=== PATIENT | male | born 1945 | race Caucasian/White ===

== ENCOUNTER → 2017-12-06 | Outpatient (CLI) | payer MEDICARE, OTHER ==
[2017-12-06 13:32] LABS: ALT (GPT) 25 U/L (12-78); CHOLESTEROL 192 MG/DL (120-200); TRIGLYCERIDES 85 MG/DL (42-150)
[2017-12-06 13:34] LABS: ALBUMIN 3.8 GM/DL (3.4-5.0); AST (GOT) 21 U/L (15-37); BICARBONATE 24.8 MEQ/L (21.0-32.0); BLOOD UREA NITROGEN 22 MG/DL (7-18); CALCIUM 9.3 MG/DL (8.5-10.1); CHLORIDE 103 MEQ/L (98-107); CREATININE 1.08 MG/DL (0.60-1.30); GLOMERULAR FILTRATION RATE 67 ML/MIN (>89); GLUCOSE,FASTING 116 MG/DL (74-99); SODIUM (NA) 137 MEQ/L (136-145)
[2017-12-06 13:35] LABS: ALKALINE PHOSPHATASE 100 U/L (45-117); CHOLESTEROL/ HDL RATIO 4.35 RATIO; HDL CHOLESTEROL 44.1 MG/DL (40.0-60.0); LDL CHOLESTEROL 131 MG/DL (0-99); TOTAL BILIRUBIN ADULT 0.4 MG/DL (0.2-1.0); TOTAL PROTEIN 8.2 GM/DL (6.4-8.2)
[2017-12-08 11:54] LABS: RHEUMATOID FACTOR 10 IU/mL (<14)
[2017-12-08 17:51] LABS: ANA IFA PATTERN ND (()); ANA IFA TITER ND titer (()); ANA SER QL NEGATIVE (NEGATIVE); SCL-70 AB <1.0 NEG AI (<1.0 NEGATIVE); SM AB <1.0 NEG AI (<1.0 NEGATIVE); SM/RNP AB <1.0 NEG AI (<1.0 NEGATIVE)
[2017-12-08 23:53] LABS: DS DNA AB(CRITHIDIA) NEGATIVE (NEGATIVE); DS DNA AB(CRITHIDIA)TITER ND (<1:10)
== END ==
LOC: CLAB 12:38
PROVIDERS: ATTEND Family Medicine
DX: E78.2 Mixed hyperlipidemia (principal); M25.50 Pain in unspecified joint; Z12.5 Encounter for screening for malignant neoplasm of prostate
CPT/HCPCS: 36415; 80053; 80061; 84153; 84550; 85652; 86038; 86235; 86255; 86431